=== PATIENT | male | born 1950 | race Caucasian/White ===

== ENCOUNTER 2018-07-28 09:44 | Outpatient (CLI) | payer MEDICARE, SELFPAY ==
[2018-07-28 11:28] LABS: ALT 33 U/L (12-78); AST 20 U/L (15-37); Albumin 3.9 g/dL (3.4-5.0); Alkaline Phosphatase 92 U/L (46-116); Anion Gap 9.9 mmol/L (3-11); BUN 20 mg/dL (7-18); Bilirubin, Total 0.6 mg/dL (0.2-1.0); CO2 28.1 mmol/L (21.0-32.0); CREATININE 1.48 mg/dL (0.70-1.30); Calcium 9.8 mg/dL (8.5-10.1); Chloride 102 mmol/L (98-107); Cholesterol 121 mg/dL (50-200); Estimated GFR 47.27 (mL/min/1.73m2); Glucose 117 mg/dL (70-100); HDL Cholesterol 38 mg/dL (40-60); LDL CHOLESTEROL 70 mg/dL (<100); Potassium 4.4 mmol/L (3.5-5.1); Sodium 140 mmol/L (136-145); Total Protein 7.1 g/dL (6.4-8.2); Triglyceride 81 mg/dL (30-150)
== END 2018-07-28 10:04 ==
PROVIDERS: PCP Nurse Practitioner; Visit Provider Nurse Practitioner
DX: E78.5 Hyperlipidemia, unspecified (principal)
CPT/HCPCS: 36415; 80053; 80061; 83721

== ENCOUNTER 2018-11-25 15:47 | Outpatient (REF) | payer MEDICARE, SELFPAY ==
[2018-11-25 19:29] LABS: Anion Gap 9.7 mmol/L (3-11); BUN 18 mg/dL (7-18); CO2 27.3 mmol/L (21.0-32.0); Calcium 9.2 mg/dL (8.5-10.1); Chloride 102 mmol/L (98-107); Glucose 120 mg/dL (70-100); Sodium 139 mmol/L (136-145)
== END 2018-11-25 16:07 ==
LOC: LBN 15:47
PROVIDERS: PCP Nurse Practitioner; Visit Provider Nurse Practitioner
DX: I10 Essential (primary) hypertension (principal); R73.01 Impaired fasting glucose
CPT/HCPCS: 80048

== ENCOUNTER 2019-11-17 01:35 | Outpatient (CLI) | payer MEDICARE, SELFPAY ==
[2019-11-17 10:45] LABS: HCT 49.9 % (40.0-50.0); HGB 16.3 g/dL (13.5-17.5); MCH 28.6 pg (27.0-33.0); MCHC 32.7 % (32.0-36.0); MCV 87.7 fL (80-95); MPV 10.9 fL (8.0-11.0); Platelet Count 223 10^3/uL (130-400); RBC 5.69 10^6/uL (4.36-5.78); RDW 14.9 % (11.8-14.1); RDW-SD 47.4 fL; WBC 10.55 10^3/uL (4.4-10.8)
[2019-11-17 11:13] LABS: ALT 29 U/L (16-63); AST 17 U/L (15-37); Albumin 3.9 g/dL (3.4-5.0); Alkaline Phosphatase 66 U/L (46-116); Anion Gap 7.8 mmol/L (3-11); BUN 21 mg/dL (7-18); Bilirubin, Total 0.6 mg/dL (0.2-1.0); CO2 26.2 mmol/L (21.0-32.0); CREATININE 1.66 mg/dL (0.70-1.30); Calcium 9.7 mg/dL (8.5-10.1); Calculated LDL 66 mg/dL (<100); Chloride 105 mmol/L (98-107); Cholesterol 124 mg/dL (<200); Estimated GFR 41.28 (mL/min/1.73m2); Glucose 116 mg/dL (74-106); HDL Cholesterol 41 mg/dL (40-60); Potassium 4.4 mmol/L (3.5-5.1); Sodium 139 mmol/L (136-145); Total Protein 7.8 g/dL (6.4-8.2); Triglyceride 87 mg/dL (<150)
== END 2019-11-17 01:55 ==
PROVIDERS: PCP Nurse Practitioner; Visit Provider Nurse Practitioner
DX: I10 Essential (primary) hypertension (principal); N18.3 Chronic kidney disease, stage 3 (moderate); I21.09 ST elevation (STEMI) myocardial infarction involving other coronary artery of anterior wall
CPT/HCPCS: 36415; 80053; 80061; 85027

== ENCOUNTER 2020-11-06 03:22 | Outpatient (CLI) | payer MEDICARE, SELFPAY ==
[2020-11-06 10:33] LABS: HCT 49.2 % (40.0-50.0); HGB 15.7 g/dL (13.5-17.5); MCH 27.7 pg (27.0-33.0); MCHC 31.9 % (32.0-36.0); MCV 86.9 fL (80-95); MPV 11.4 fL (8.0-11.0); Platelet Count 222 10^3/uL (130-400); RBC 5.66 10^6/uL (4.36-5.78); RDW 14.9 % (11.8-14.1); RDW-SD 47.5 fL
[2020-11-06 11:44] LABS: ALT 21 U/L (16-63); AST 15 U/L (15-37); Alkaline Phosphatase 67 U/L (46-116); Anion Gap 11.3 mmol/L (3-11); BUN 20 mg/dL (7-18); Bilirubin, Total 0.6 mg/dL (0.2-1.0); CO2 27.7 mmol/L (21.0-32.0); CREATININE 1.7 mg/dL (0.70-1.30); Calcium 9.4 mg/dL (8.5-10.1); Calculated LDL 88 mg/dL (<100); Chloride 103 mmol/L (98-107); Cholesterol 154 mg/dL (<200); Estimated GFR 40.04 (mL/min/1.73m2); Glucose 127 mg/dL (74-106); HDL Cholesterol 41 mg/dL (40-60); Potassium 4.3 mmol/L (3.5-5.1); Sodium 142 mmol/L (136-145); Total Protein 7.3 g/dL (6.4-8.2); Triglyceride 129 mg/dL (<150)
== END 2020-11-06 03:23 | disposition home or self-care (01) ==
LOC: LBO 03:22
PROVIDERS: PCP Nurse Practitioner; Visit Provider Nurse Practitioner
DX: E78.5 Hyperlipidemia, unspecified (principal); I10 Essential (primary) hypertension; R73.03 Prediabetes; N18.30 Chronic kidney disease, stage 3 unspecified; I21.09 ST elevation (STEMI) myocardial infarction involving other coronary artery of anterior wall
CPT/HCPCS: 36415; 80053; 80061; 85027

== ENCOUNTER 2021-03-27 14:39 | Outpatient (REF) | payer MEDICARE, SELFPAY | END 2021-03-27 14:40 | disposition home or self-care (01) | LOC: LBN 14:39 | PROVIDERS: PCP Nurse Practitioner; Referring Provider Nurse Practitioner; Visit Provider Nurse Practitioner | DX: R35.0 Frequency of micturition (principal) | CPT/HCPCS: 87086 ==

== ENCOUNTER → 2021-07-08 11:03 | Outpatient (BNVA) | payer MEDICARE, SELFPAY | PROVIDERS: PCP Nurse Practitioner; Referring Provider Nurse Practitioner; Visit Provider Nurse Practitioner Gerontology | DX: R35.0 Frequency of micturition (principal); R97.20 Elevated prostate specific antigen [PSA] | CPT/HCPCS: 99203 ==

== ENCOUNTER 2021-08-29 08:52 | Outpatient (CLI) | payer MEDICARE, SELFPAY ==
--- NOTE | 2021-08-29 08:45 | RT.EKG_ITS ---
APPROVED REPORT Exam: Resting ECG Reason for Exam: [facility] Patient Location: O HR:67 bpm ECG Measurements Heart Rate 67 AXIS MI 175 P 175 QRSd 152 QRS -68 QT 413 T 73 QTc 436 Conclusion Sinus or ectopic atrial rhythm...P axis (-45,135) Right bundle branch block...QRSd>120, terminal axis(90,270) Anterolateral infarct, age indeterminate...Q >35mS, flat/neg T, V3-V6,I,aVL
== END 2021-08-29 08:53 | disposition home or self-care (01) ==
LOC: DI.CARD 08:53
PROVIDERS: PCP Nurse Practitioner; Visit Provider Internal Medicine Cardiovascular Disease
DX: I42.9 Cardiomyopathy, unspecified (principal); I44.30 Unspecified atrioventricular block
CPT/HCPCS: 93010

== ENCOUNTER → 2021-08-29 13:33 | Outpatient (BNVA) | payer MEDICARE, SELFPAY | PROVIDERS: PCP Nurse Practitioner; Referring Provider Nurse Practitioner; Visit Provider Internal Medicine Cardiovascular Disease | DX: I25.2 Old myocardial infarction (principal); I42.9 Cardiomyopathy, unspecified; I44.30 Unspecified atrioventricular block; Z95.0 Presence of cardiac pacemaker; Z79.01 Long term (current) use of anticoagulants | CPT/HCPCS: 93005; 99203; 99214 ==

== ENCOUNTER 2021-09-19 03:14 | Outpatient (CLI) | payer MEDICARE, SELFPAY ==
[2021-09-19 22:50] LABS: PSA, Screening 4.6 ng/mL (<=6.5)
== END 2021-09-19 03:15 | disposition home or self-care (01) ==
LOC: LBO 03:15
PROVIDERS: PCP Nurse Practitioner; Visit Provider Nurse Practitioner Gerontology
DX: R35.1 Nocturia (principal); Z12.5 Encounter for screening for malignant neoplasm of prostate
CPT/HCPCS: 36415; 84153

== ENCOUNTER → 2021-09-24 12:39 | Outpatient (BNVA) | payer MEDICARE, SELFPAY | PROVIDERS: PCP Nurse Practitioner; Referring Provider Nurse Practitioner; Visit Provider Nurse Practitioner Gerontology | DX: R35.1 Nocturia (principal); R35.0 Frequency of micturition; R97.20 Elevated prostate specific antigen [PSA] | CPT/HCPCS: 51798; 99213 ==

== ENCOUNTER 2021-11-19 03:24 | Outpatient (CLI) | payer MEDICARE, SELFPAY ==
[2021-11-19 10:13] LABS: HCT 48.3 % (40.0-50.0); HGB 15.4 g/dL (13.5-17.5); MCH 27.5 pg (27.0-33.0); MCHC 31.9 % (32.0-36.0); MCV 86 fL (80-95); Platelet Count 199 10^3/uL (130-400); RBC 5.61 10^6/uL (4.36-5.78); RDW 15.7 % (11.8-14.1); RDW-SD 49.2 fL; WBC 10.83 10^3/uL (4.4-10.8)
[2021-11-19 10:24] LABS: ALT 27 U/L (16-63); AST 22 U/L (15-37); Albumin 3.7 g/dL (3.4-5.0); Alkaline Phosphatase 65 U/L (46-116); Anion Gap 11.6 mmol/L (3-11); BUN 28 mg/dL (7-18); Bilirubin, Total 0.7 mg/dL (0.2-1.0); CO2 24.4 mmol/L (21.0-32.0); CREATININE 1.5 mg/dL (0.70-1.30); Calcium 9.4 mg/dL (8.5-10.1); Calculated LDL 68 mg/dL (<100); Chloride 104 mmol/L (98-107); Cholesterol 132 mg/dL (<200); Estimated GFR 46.13 (mL/min/1.73m2); Glucose 130 mg/dL (74-106); HDL Cholesterol 48 mg/dL (40-60); Sodium 140 mmol/L (136-145); Total Protein 7.8 g/dL (6.4-8.2); Triglyceride 81 mg/dL (<150)
[2021-11-19 10:38] LABS: Hemoglobin A1C 6.3 % (<5.7)
[2021-11-20 08:56] LABS: Hepatitis C Ab w Rflx HCV PCR Negative (Negative)
== END 2021-11-19 03:25 | disposition home or self-care (01) ==
LOC: LBO 03:24
PROVIDERS: PCP Nurse Practitioner; Visit Provider Nurse Practitioner
DX: I21.09 ST elevation (STEMI) myocardial infarction involving other coronary artery of anterior wall (principal); E78.5 Hyperlipidemia, unspecified; I10 Essential (primary) hypertension; N18.30 Chronic kidney disease, stage 3 unspecified; Z79.01 Long term (current) use of anticoagulants; Z11.59 Encounter for screening for other viral diseases; E11.9 Type 2 diabetes mellitus without complications
CPT/HCPCS: 36415; 80053; 80061; 85027; 86803; 83036

== ENCOUNTER 2022-03-19 01:41 | Outpatient (CLI) | payer MEDICARE, SELFPAY ==
[2022-03-19 22:58] LABS: PSA, Screening 5.7 ng/mL (<=6.5)
== END 2022-03-19 01:42 | disposition home or self-care (01) ==
LOC: LBO 01:44
PROVIDERS: PCP Nurse Practitioner; Visit Provider Nurse Practitioner Gerontology
DX: R97.20 Elevated prostate specific antigen [PSA] (principal); Z12.5 Encounter for screening for malignant neoplasm of prostate
CPT/HCPCS: 36415; 84153

== ENCOUNTER 2022-03-26 02:26 | Outpatient (CLI) | payer MEDICARE, SELFPAY ==
[2022-03-26 14:31] LABS: HCT 51.8 % (40.0-50.0); HGB 16.4 g/dL (13.5-17.5); MCH 27.7 pg (27.0-33.0); MCHC 31.7 % (32.0-36.0); MCV 88 fL (80-95); MPV 10.9 fL (8.0-11.0); Platelet Count 235 10^3/uL (130-400); RBC 5.91 10^6/uL (4.36-5.78); RDW 14.4 % (11.8-14.1); RDW-SD 45.8 fL; WBC 9.85 10^3/uL (4.4-10.8)
[2022-03-26 15:31] LABS: ALT 25 U/L (16-63); AST 22 U/L (15-37); Alkaline Phosphatase 87 U/L (46-116); Anion Gap 5.4 mmol/L (3-11); BUN 20 mg/dL (7-18); Bilirubin, Total 0.6 mg/dL (0.2-1.0); CO2 29.6 mmol/L (21.0-32.0); CREATININE 1.7 mg/dL (0.70-1.30); Calcium 9.5 mg/dL (8.5-10.1); Chloride 102 mmol/L (98-107); Glucose 158 mg/dL (74-106); Potassium 4.7 mmol/L (3.5-5.1); Sodium 137 mmol/L (136-145); TSH (W/Ref FT4) 1.52 uIU/mL (0.36-3.74); Total Protein 8.1 g/dL (6.4-8.2); Vitamin B12 563 pg/mL (193-986)
== END 2022-03-26 02:27 | disposition home or self-care (01) ==
LOC: LBO 02:26
PROVIDERS: PCP Nurse Practitioner; Visit Provider Nurse Practitioner
DX: I10 Essential (primary) hypertension (principal); R41.9 Unspecified symptoms and signs involving cognitive functions and awareness; I25.2 Old myocardial infarction
CPT/HCPCS: 36415; 51798; 80053; 85027; 99213; 82607; 84443

== ENCOUNTER → 2022-04-02 10:45 | Outpatient (BNVA) | payer MEDICARE, SELFPAY | PROVIDERS: PCP Nurse Practitioner; Referring Provider Nurse Practitioner; Visit Provider Internal Medicine Cardiovascular Disease | DX: Z95.0 Presence of cardiac pacemaker (principal) | CPT/HCPCS: 93280 ==

== ENCOUNTER 2022-04-14 01:34 | Outpatient (CLI) | payer MEDICARE, SELFPAY ==
--- NOTE | 2022-04-14 10:45 | DI.CT_ITS ---
Exam(s) CT HEAD WO EXAM: CT HEAD WO CLINICAL HISTORY: episodic confusion,r41.0. TECHNIQUE: Imaging Protocol: Axial computed tomography images with coronal and sagittal reformatted images were created and reviewed COMPARISON: No exams were available for comparison FINDINGS: Ventricles and Extra axial spaces: Normal in size and morphology for the patient's age. Hemorrhage: None. Atherosclerosis is present. 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 There are areas of decreased atten uation in the white matter most consistent with small vessel ischemic disease. No acute territorial infarct is present. Midline shift: None. Brainstem/Cerebellum: Normal. Calvarium: Normal. Visualized Paranasal sinuses/Mastoids: There is mild mucosal thickening in the ethmoid air cells. Th e remaining visualized paranasal sinuses and mastoid air cells are clear. Soft Tissues: Unremarkable. IMPRESSION: No acute intracranial process. RADIATION DOSE DELIVERED: 639.01mGy.cm Total DLP DATA REPOSITORY: All CT scans at this facility are submitted to the National Radiology Data Registry (NRDR) Dose Index Registry (DIR) with the [employer] ([employer]). RADIATION OPTIMIZATION: All CT scans at this facility use at least one of these dose optimization te chniques: automated exposure control; mA and/or kV adjustment per patient size (includes targeted exa ms where dose is matched to clinical indication); or iterative reconstruction.
== END 2022-04-14 01:54 ==
LOC: DI 01:34
PROVIDERS: PCP Nurse Practitioner; Visit Provider Nurse Practitioner
DX: R41.0 Disorientation, unspecified (principal); R46.89 Other symptoms and signs involving appearance and behavior
CPT/HCPCS: 70450

== ENCOUNTER → 2022-08-28 13:23 | Outpatient (BNVA) | payer MEDICARE, SELFPAY | PROVIDERS: PCP Nurse Practitioner; Referring Provider Nurse Practitioner; Visit Provider Internal Medicine Cardiovascular Disease | DX: I42.9 Cardiomyopathy, unspecified (principal); I25.10 Atherosclerotic heart disease of native coronary artery without angina pectoris; D75.1 Secondary polycythemia | CPT/HCPCS: 99213 ==

== ENCOUNTER 2022-09-17 02:41 | Outpatient (CLI) | payer MEDICARE, SELFPAY ==
[2022-09-17 18:10] LABS: PSA, Diagnostic 4.7 ng/mL (<=6.5)
== END 2022-09-17 02:42 | disposition home or self-care (01) ==
LOC: LBO 02:41
PROVIDERS: PCP Nurse Practitioner; Visit Provider Nurse Practitioner Gerontology
DX: R97.20 Elevated prostate specific antigen [PSA] (principal)
CPT/HCPCS: 36415; 84153

== ENCOUNTER → 2022-09-24 12:42 | Outpatient (BNVA) | payer MEDICARE, SELFPAY | PROVIDERS: PCP Nurse Practitioner; Visit Provider Nurse Practitioner Gerontology | DX: R35.0 Frequency of micturition (principal); R97.20 Elevated prostate specific antigen [PSA] | CPT/HCPCS: 51798; 99213 ==

== ENCOUNTER → 2022-10-01 10:34 | Outpatient (BNVA) | payer MEDICARE, SELFPAY | PROVIDERS: PCP Nurse Practitioner; Referring Provider Nurse Practitioner; Visit Provider Internal Medicine Cardiovascular Disease | DX: Z45.018 Encounter for adjustment and management of other part of cardiac pacemaker (principal) | CPT/HCPCS: 93280 ==